=== PATIENT | female | born 1990 | race Two or more races ===

== ENCOUNTER 2016-08-24 15:40 | Emergency (ER) | payer MEDICAID ==
[~2016-08-24] VITALS: Ht 162.6 cm; Wt 94.8 kg
[2016-08-24 16:42] VITALS: BP 132/68
[2016-08-24] MEDS ORDERED: KETOROLAC TROMETH 60MG/2ML VIAL IM ONE (17:15)
== END 2016-08-24 17:44 | disposition home or self-care (01) ==
LOC: ER 15:47
DX: H66.91 Otitis media, unspecified, right ear (principal); R51 Headache; R42 Dizziness and giddiness
CPT/HCPCS: 81025; 96372; 99283; J1885

== ENCOUNTER 2016-08-28 13:14 | Emergency (ER) | payer MEDICAID ==
[~2016-08-28] VITALS: Ht 162.6 cm; Wt 90.7 kg
[2016-08-28 14:33] VITALS: BP 114/56
== END 2016-08-28 15:03 | disposition home or self-care (01) ==
LOC: ER 13:32
DX: J01.10 Acute frontal sinusitis, unspecified (principal)

== ENCOUNTER 2016-09-19 16:20 | Emergency (ER) | payer MEDICAID ==
[~2016-09-19] VITALS: Ht 162.6 cm; Wt 95.3 kg
[2016-09-19 16:42] VITALS: BP 130/76
== END 2016-09-19 19:51 | disposition home or self-care (01) ==
LOC: ER 16:22
DX: R51 Headache (principal)
CPT/HCPCS: 70450; 82962

== ENCOUNTER 2019-09-29 19:41 | Emergency (ER) | payer MEDICAID ==
[~2019-09-29] VITALS: Ht 162.6 cm; Wt 104.3 kg
[2019-09-29] MEDS ORDERED: IBUPROFEN 800 MG TAB PO ONE (20:15)
[2019-09-29] MEDS ORDERED: ACETAMINOPHEN 500 MG TAB PO ONE (20:15)
[2019-09-29] MEDS ORDERED: ALBUTEROL SULF HFA 90MCG INH 200DOSE IN SCH (22:00)
[2019-09-29] MEDS ORDERED: AZITHROMYCIN 500MG/ 250ML 250 ML IV ONE (22:00)
[2019-09-29] MEDS ORDERED: cefTRIAXone 1GM/50ML D5W 50 ML IV ONE (22:00)
[2019-09-29 22:53] LABS: Basophils # (auto) 0 10 ^3/uL (0-0.2); Basophils % (auto) 0.3 % (0.0-2.0); Eosinophils # (auto) 0.1 10 ^3/uL (0-0.8); Eosinophils % (auto) 0.6 % (0.0-7.0); Hematocrit 39.4 % (36.0-46.0); Hemoglobin 12.5 g/dL (12.2-16.2); Lymphocytes # (auto) 1.7 10 ^3/uL (0.4-5.4); Lymphocytes % (auto) 11.2 % (10.0-50.0); Mean Corpuscular Hemoglobin 26.4 pg (28.0-32.0); Mean Corpuscular Hgb Conc. 31.8 g/dL (32.0-36.0); Mean Corpuscular Volume 83.1 fL (80.0-100.0); Monocytes # (auto) 0.8 10 ^3/uL (0-1.3); Monocytes % (auto) 5.2 % (0.0-12.0); Neutrophils # (auto) 12.2 10 ^3/uL (1.6-8.6); Neutrophils % (auto) 82.7 % (37.0-80.0); Nucleated Red Blood Cells % 0.1 %; Platelet Count (auto) 307 10^3/uL (140-450); Red Blood Cells 4.75 10^6/uL (4.0-5.20); Red Cell Distribution Width 15.2 % (11.8-14.3); White Blood Cell 14.8 10^3/uL (4.4-10.8)
[2019-09-29 22:55] LABS: Albumin 3.7 g/dL (3.4-5.0); Calcium 8.6 mg/dL (8.5-10.1); Potassium 3.2 mmol/L (3.5-5.1)
[2019-09-29 22:58] LABS: Bilirubin, Total 0.3 mg/dL (0.2-1.0); Total Protein 8.1 g/dL (6.4-8.2)
[2019-09-29 23:00] VITALS: BP 127/68
== END 2019-09-30 02:18 | disposition home or self-care (01) ==
LOC: ER 19:41
DX: R50.9 Fever, unspecified (principal); J18.9 Pneumonia, unspecified organism; J01.00 Acute maxillary sinusitis, unspecified; Z20.828 Contact with and (suspected) exposure to other viral communicable diseases
CPT/HCPCS: 36415; 71045; 80053; 82728; 85025; 87040; 87070; 87635; 87804; 87880; 96365; 96366; 96368; 99284; J0456; J0696